=== PATIENT | male | born 1955 | race Caucasian/White ===

== ENCOUNTER 2020-12-29 06:17 | Outpatient (REF) | payer BC, SELFPAY ==
[2020-12-29 06:26] LABS: MANUAL DIFF FLAG NO
[2020-12-29 06:31] LABS: Basophils Percent Auto 0.1 % (0-2); Eosinophils Absolute Auto 0.1 X10*3/uL (0.0-0.4); Eosinophils Percent Auto 0.4 % (0-4); Hematocrit 27.5 % (42-52); Hemoglobin 8.2 g/dl (14.0-18.0); Imm Gran Abs Auto 0.09 X10*3/uL (0.00-0.03); Imm Gran Pct Auto 0.8 % (0.0-0.4); Lymphocytes Absolute Auto 0.3 X10*3/uL (1.2-4.9); Mean Corpuscular HGB Conc 29.8 g/dl (31.0-36.0); Mean Corpuscular Hemoglobin 26.6 pg (27.0-33.0); Mean Corpuscular Volume 89.3 fL (80-98); Mean Platelet Volume 9.1 fL (9.4-12.4); Monocytes Absolute Auto 0.9 X10*3/uL (0.1-1.2); Monocytes Percent Auto 8.1 % (2-11); Neutrophils Absolute Auto 9.8 X10*3/uL (2.0-8.3); Neutrophils Percent Auto 87.6 % (45-73); Platelet Count 283 X10*3/uL (160-400); Red Blood Count 3.08 X10*6/uL (4.60-5.80); Red Cell Distribution Width 15.9 % (11.0-16.0); White Blood Count 11.2 X10*3/uL (4.8-10.8)
[2020-12-29 07:12] LABS: Alanine Aminotransferase 16 U/L (0-40); Albumin Level 2.5 g/dL (3.5-5.0); Alkaline Phosphatase 112 U/L (39-117); Aspartate Amino Transferase 18 U/L (5-37); Bilirubin Total 0.6 mg/dL (0.0-1.0); Blood Urea Nitrogen 14 mg/dL (9-16); Calcium 7.9 mg/dL (8.4-10.2); Estimated Glomerular Filt Rate > 60; Glucose Random 128 mg/dL (60-115); Total Protein 5.1 g/dL (6.5-8.0)
[2020-12-29 07:25] LABS: Anion Gap 9 (12-20); Carbon Dioxide 42 mmol/L (22-29); Chloride 90 mmol/L (96-108); Potassium 4.1 mmol/L (3.3-5.1); Sodium 137 mmol/L (135-145)
== END 2020-12-29 06:18 | disposition home or self-care (01) ==
LOC: HO.MMNH1L 06:17
PROVIDERS: Visit Provider Family Medicine
DX: K92.2 Gastrointestinal hemorrhage, unspecified (principal); J44.9 Chronic obstructive pulmonary disease, unspecified; E11.9 Type 2 diabetes mellitus without complications
CPT/HCPCS: 36415; 80053; 85025

== ENCOUNTER 2020-12-30 07:23 | Outpatient (REF) | payer BC, SELFPAY ==
[2020-12-30 08:05] LABS: Blood Urea Nitrogen 12 mg/dL (9-16); Calcium 7.9 mg/dL (8.4-10.2); Estimated Glomerular Filt Rate > 60; Glucose Random 129 mg/dL (60-115)
[2020-12-30 08:30] LABS: Anion Gap 11 (12-20); Carbon Dioxide 40 mmol/L (22-29); Chloride 91 mmol/L (96-108); Sodium 138 mmol/L (135-145)
== END 2020-12-30 07:24 | disposition home or self-care (01) ==
LOC: HO.MMNH1L 07:23
PROVIDERS: Visit Provider Family Medicine
DX: R06.89 Other abnormalities of breathing (principal)
CPT/HCPCS: 36415; 80048

== ENCOUNTER 2021-01-16 00:38 | Outpatient (REF) | payer MEDICARE, BC, SELFPAY | END 2021-01-16 00:39 | disposition home or self-care (01) | LOC: HO.MMNH1L 00:38 | PROVIDERS: Visit Provider Family Medicine | DX: Z13.89 Encounter for screening for other disorder (principal) ==